=== PATIENT | male | born 1960 | race Two or more races ===

== ENCOUNTER 2019-05-30 22:59 | Emergency (ER) | payer OTHER ==
[~2019-05-30] VITALS: Ht 170.2 cm; Wt 83.3 kg
[~2019-05-30 22:59] MED LIST: ATOR-2 PO; BISA10SU4 PR; CELE200C PO; CHOL500045 PO; DIPH25CA61 PO; DOCU100C33 PO; DOXY100C2 PO; GABA800T5 PO; HYDR-3245 PO; LABE5VIA13 IV; LEVO100T PO; LIDO700A30 TD; METH4TAB2 PO; METH500T7 PO; METH750T2 PO; MORP-30 PO; OMEG1CAP24 PO; OMEP-110 PO; ONDA4SOL2 IV; OXYC15TA PO; SENN-177 PO; VARE1TAB21 PO
[2019-05-30 23:00] VITALS: BP 171/93
[2019-05-30] MEDS ORDERED: FLUORESCEIN OPHTHALMIC 1 MG STRIP ONE (23:12)
[2019-05-30] MEDS ORDERED: VALACYCLOVIR 500MG TABLET PO ONE (23:30)
[2019-05-30] MEDS ORDERED: PROPARACAINE OPHTH 0.5%, 15ML EACHEYE ONE (23:30)
[2019-05-30] MEDS ORDERED: FLUORESCEIN OPHTHALMIC 1 MG STRIP EACHEYE ONE (23:30)
--- NOTE | 2019-05-30 23:30 | NUR ---
MED REQUEST SENT TO PHARMACY
--- NOTE | 2019-05-30 23:45 | NUR ---
PT MEDICATED PER EMAR
--- NOTE | 2019-05-31 00:01 | NUR ---
NO S/S OF MED RXN NOTED. DC EDUCATION PROVIDED, PT DEMONSTRATES UNDERSTANDING. PT AMBUALTED STEADILY TO DC WITH RN
== END 2019-05-31 00:02 | disposition home or self-care (01) ==
LOC: ED 23:53
DX: B02.9 Zoster without complications (principal); F17.200 Nicotine dependence, unspecified, uncomplicated
CPT/HCPCS: 99283